=== PATIENT | female | born 1990 | race Caucasian/White ===

== ENCOUNTER → 2016-05-02 | Outpatient (CLI) | payer OTHER ==
[~2016-05-02] MED LIST: ACET50TA PO; COLA100C PO; IBUP60TA PO; MOM30SS PO; PRENTAB31 PO
--- NOTE | 2016-05-02 17:34 | REP ---
OB ULTRASOUND: Real-time sonographic evaluation of the gravid uterus is performed. There is a single living intrauterine gestation. The estimated gestational age is 22 weeks 6 with EDC 08/30/2016. Today's measurements indicate appropriate growth. BPD 54 mm = 22 weeks 3 days, at the 39th percentile. HC 211 mm = 23 weeks 1 day, at the 57th percentile. AC 190 mm = 23 weeks 5 days, at the 67th percentile. Femur length 42 mm = 23 weeks 3 days, at the 64th percentile. HC/AC ratio 1.11 within normal range. Estimated weight 202 grams at the 64th percentile. Cervix is closed and measures 3.8 cm in length. heart rate 144 beats per minute. SEEN/GROSSLY UNREMARKABLE Lateral ventricles There are bilateral choroid plexus cysts, on left measuring 9 mm in diameter and on the right and 16 x 8 mm. Posterior fossa Yes Upper lip Yes Four-chamber heart Yes LVOT Yes RVOT Yes Stomach Yes Cord insertion Yes Three vessel cord Yes Kidneys Yes Bladder Yes Spine No position: Breech Placenta: Anterior and grade 0 with no previa or abruption. Amniotic fluid: Within normal limits. There appears to be a venous ramos in the placenta 5.1 x 1.6 x 2.8 cm. Unreviewed
== END ==
LOC: M SMT 14:55
PROVIDERS: ATTEND Specialist
DX: Z34.82 Encounter for supervision of other normal pregnancy, second trimester (principal); Z3A.22 22 weeks gestation of pregnancy; O32.1XX0 Maternal care for breech presentation, not applicable or unspecified

== ENCOUNTER → 2016-06-12 | Outpatient (CLI) | payer OTHER ==
[~2016-06-12] MED LIST changes: -COLA100C PO; +COLA100C3 PO
--- NOTE | 2016-06-13 03:18 | REP ---
Clinical: Anatomical evaluation. Comparison: 05/02/2016 . Findings: Examination demonstrates a single live intrauterine in breech presentation. motion is identified by technologist. Placenta is noted anteriorly and grade one without evidence for placenta previa or abruption. Amniotic fluid volume is normal. Cervix measures 3.7 cm in length and appears closed. No evidence for nuchal cord. Gestational age by first ultrasound 28 weeks 3 days with ADRIAN 08/30/2016 . Gestational age by current measurements 29 weeks 3-day with ADRIAN 08/25/2016 . FHR equals 147 beats per minute. Amniotic fluid index equals 11.1 cm. Estimated weight 1430 grams ( 63rd percentile). Anatomical assessment demonstrates normal structures including cranium, cavum, cerebellum/posterior fossa, lungs, four-chamber heart, diaphragm, stomach, cord insertion/three-vessel cord, bladder, spine, and extremities. Impression: Single live intrauterine in cephalic presentation. Bilateral choroid plexus cysts again noted (7 mm right; 7 mm left). Mild renal pelviectasis (2.6 mm right; 3.1 mm left). Remainder of the anatomical assessment is complete and normal. Signed by Ruslan Devine MD 06/13/2016 03:10 A
== END ==
LOC: M SMT 10:42
PROVIDERS: ATTEND Obstetrics & Gynecology
DX: Z34.82 Encounter for supervision of other normal pregnancy, second trimester (principal); Z3A.28 28 weeks gestation of pregnancy

== ENCOUNTER → 2016-06-13 | Outpatient (CLI) | payer OTHER ==
[2016-06-13 13:28] LABS: BASO % 0.2 % (0.0-1.0); EOS # 0.1 K/mm3 (0.0-0.50); EOS % 0.7 % (0.0-3.0); LARGE UNSTAINED CELL # 0.1 K/mm3 (0.0-0.4); LYMPH # 1.6 K/mm3 (1.5-6.5); LYMPH % 18.7 % (24.0-44.0); MEAN CORPUSCULAR HEMOGLOBIN 27.2 pg (27.0-33.0); MEAN CORPUSCULAR VOLUME 84.8 fl (80.0-96.0); MONO # 0.4 K/mm3 (0.0-0.8); MONO % 4.2 % (0.0-5.0); NEUTROPHILS # 6.3 K/mm3 (1.8-7.7); NEUTROPHILS % 75.2 % (36.0-66.0); PLATELET COUNT, AUTOMATED 276 k/mm3 (150-450); RED CELL DISTRIBUTION WIDTH 12.9 % (11.5-14.5); WHITE BLOOD COUNT 8.4 K/mm3 (4.0-10.0)
[2016-06-13 13:58] LABS: HBsAg Prenatal NEGATIVE (NEGATIVE)
== END ==
LOC: M SMT 08:39
PROVIDERS: ATTEND Obstetrics & Gynecology
DX: Z34.82 Encounter for supervision of other normal pregnancy, second trimester (principal); Z3A.28 28 weeks gestation of pregnancy

== ENCOUNTER → 2016-06-30 | Outpatient (REF) | payer OTHER | LOC: M LAB REF 17:11 | PROVIDERS: ATTEND Advanced Practice Midwife | DX: Z34.83 Encounter for supervision of other normal pregnancy, third trimester (principal) ==

== ENCOUNTER → 2016-08-06 | Outpatient (REF) | payer OTHER | LOC: M LAB REF 17:32 | PROVIDERS: ATTEND Advanced Practice Midwife | DX: Z34.83 Encounter for supervision of other normal pregnancy, third trimester (principal) ==

== ENCOUNTER → 2016-08-12 | Outpatient (CLI) | payer OTHER ==
--- NOTE | 2016-08-13 06:03 | REP ---
Clinical: Growth evaluation. Comparison: 06/12/2016 . Findings: Examination demonstrates a single live intrauterine in cephalic presentation. motion is identified by technologist. Placenta is noted anteriorly and grade one without evidence for placenta previa or abruption. Amniotic fluid volume is normal. No evidence for nuchal cord. Gestational age by LMP 37 weeks 3 days with ADRIAN 08/30/2016 . Gestational age by current measurements 37 weeks 4 days with ADRIAN 08/29/2016 . FHR equals 141 beats per minute. BPD 8.9 cm 36 weeks 1 day HC 32.7 cm 37 weeks 1 day AC 33.5 cm 37 weeks 3 days FL 7.7 cm 39 weeks 2 days HC/AC ratio 0.98 Estimated weight 3265 grams ( 58th percentile). SRINIVASAN = 13.1 cm (7.4 - 24.2) Impression: 1. Single live advanced gestation in cephalic presentation demonstrating appropriate interval growth. 2. Estimated weight and amniotic fluid index are normal. Signed by Ruslan Devine MD 08/13/2016 05:54 A
== END ==
LOC: M SMT 15:03
PROVIDERS: ATTEND Advanced Practice Midwife
DX: O26.843 Uterine size-date discrepancy, third trimester (principal); Z3A.36 36 weeks gestation of pregnancy

== ENCOUNTER → 2016-08-19 | Outpatient (CLI) | payer OTHER | LOC: M LAB 08:18 | PROVIDERS: ATTEND Advanced Practice Midwife | DX: Z34.82 Encounter for supervision of other normal pregnancy, second trimester (principal) ==

== ENCOUNTER 2016-08-23 11:10 | Inpatient (IN) | payer OTHER ==
[~2016-08-23] VITALS: Ht 157.5 cm; Wt 75.0 kg
[2016-08-23] VITALS (18 sets, daily range): BP systolic 95–135; BP diastolic 51–91
[~2016-08-23 11:10] MED LIST changes: -COLA100C3 PO; +COLA100C5 PO
[2016-08-23] MEDS ORDERED: miSOPROStol 50 MCG 1/2 TAB (S0191) PO SCH (12:00)
[2016-08-23] MEDS ORDERED: LR 1,000 ML IV SCH (12:18)
[2016-08-23 12:53] LABS: MEAN CORPUSCULAR HEMOGLOBIN 24.7 pg (27.0-33.0); MEAN CORPUSCULAR VOLUME 77.1 fl (80.0-96.0); RED CELL DISTRIBUTION WIDTH 14.5 % (11.5-14.5); WHITE BLOOD COUNT 6.8 K/mm3 (4.0-10.0)
--- NOTE | 2016-08-23 13:52 | HPE ---
DATE OF ADMISSION: 08/23/2016 A 26-year-old (G) 2, para (P) 1 female at 39-0/7 weeks gestation by 22 week ultrasound, estimated date of confinement (EDC) 08/30/2016, presents for labor induction. She has diagnosis of gestational diabetes which was not confirmed until lat . COURSE: The patient initiated care at 22 weeks gestation on 04/28/2016. She did not have any previous care for the prior to that. She had an abnormal glucose tolerance test, however, she did not get the 3 hour tolerance test done until 38+ weeks gestation, quite possible her diabetes is poorly controlled. An ultrasound for growth showed a growth at the 58th percentile. OBSTETRICAL HISTORY: March 2015: 41 week vaginal delivery, 8 pound 11 ounce female . MEDICAL HISTORY: Noncontributory. SURGICAL HISTORY: None. ALLERGIES: LATEX. SOCIAL HISTORY: Father of the baby is involved. The patient denies cigarettes, alcohol or drug use. FAMILY HISTORY: Noncontributory. PHYSICAL EXAMINATION: 126/68, pulse 84. She is in no apparent distress. Head and neck exam is normal. Lungs: Clear. Heart: Regular rate and rhythm. Abdomen: Nontender and gravid. heart tones: Category 1. Contractions: Irregular. Sterile vaginal exam: 2 cm, 70% effaced, -2 station, vertex. Extremities: Nontender. LABORATORY: Blood type A positive, rubella immune, RPR nonreactive. Hemoglobin 9.6 grams per g/dL, GBS negative on 08/06/2016. ASSESSMENT: A 24-year-old, 2, para 1 female at 39-0/7 weeks gestation with diet controlled gestational diabetes presents for labor induction. The patient is admitted on 08/23/2016. Risks of induction were discussed.
[2016-08-23] MEDS ORDERED: OXYTOCIN DRIP 30 UNITS in APPROPRIATE DILUENT 1 EA IV SCH (17:15)
[2016-08-23] MEDS ORDERED: PROMETHAZINE INJ 25 MG/ML VIAL (J2550) IV ONE (19:15)
[2016-08-23] MEDS ORDERED: BUTORPHANOL 2 MG/ML INJ (J0595) IV ONE (19:15)
[2016-08-24] VITALS (27 sets, daily range): BP systolic 96–142; BP diastolic 53–73
[2016-08-24] MEDS ORDERED: FENTANYL 2MCG/ML ROPIVACAINE 0.2% IN 0.9% NACL 200ML IVBAG As Ordered ONE (01:51)
[2016-08-24] MEDS ORDERED: FENTANYL/ROPIVACAINE/NACL BAG 200 ML EPIDURAL SCH (02:45)
[2016-08-24] MEDS ORDERED: REFRIGERATOR IV KEYS XX PRN (02:45)
[2016-08-24] MEDS ORDERED: LACTATED RINGER'S 1000 ML IV PRN (02:45)
[2016-08-24] MEDS ORDERED: EPIDURAL/PCA KEYS XX PRN (02:45)
[2016-08-24] MEDS ORDERED: EPIDURAL COMMENT XX SCH (02:45)
[2016-08-24] MEDS ORDERED: diphenhydrAMINE INJ 50MG/ML VIAL (J1200) IV PRN (02:45)
[2016-08-24] MEDS ORDERED: NALOXONE INJ 0.4 MG/1 ML VIAL (J2310) IV PRN (02:45)
[2016-08-24] MEDS ORDERED: ePHEDrine SULFATE 25 MG/5 ML(5MG/ML) SYRINGE IV PRN (02:45)
[2016-08-24] MEDS ORDERED: ONDANSETRON 4MG/2ML VIAL (J2405) IV PRN ×2 (02:45→05:00)
[2016-08-24] MEDS ORDERED: MEASLES,MUMPS,RUBELLA VACCINE INJ (MMR-II) (90707) SC SCH (05:00)
[2016-08-24] MEDS ORDERED: OXYTOCIN DRIP 30 UNITS in APPROPRIATE DILUENT 1 EA IV ONE (05:00)
[2016-08-24] MEDS ORDERED: METHYLERGONOVINE MALEATE 0.2 MG TAB PO PRN (05:00)
[2016-08-24] MEDS ORDERED: DIBUCAINE 1% OINTMENT 30GM TOP PRN (05:00)
[2016-08-24] MEDS ORDERED: ACETAMINOPHEN 500 MG TAB PO PRN (05:00)
[2016-08-24] MEDS ORDERED: RHOGAM 300 MCG (1500 IU) INJ (J2790) IM SCH (05:00)
[2016-08-24] MEDS ORDERED: DOCUSATE SODIUM 100 MG CAP PO PRN (05:00)
[2016-08-24] MEDS: PRENATAL VITAMINS CHEWABLE TABLET PO SCH (07:36)
[2016-08-24] MEDS: IBUPROFEN 800 MG TAB PO PRN ×2 (09:38→21:04)
--- NOTE | 2016-08-24 22:23 | DN ---
DATE OF DELIVERY: 08/24/2016 PREDELIVERY DIAGNOSIS: 39 weeks gestational diabetes labor induction. POST DELIVERY DIAGNOSIS: Delivered. PROCEDURE: Spontaneous vaginal delivery. PROJECT ARCHIVIST: Karan Elizabeth M.D. ANESTHESIA: Epidural. ESTIMATED BLOOD LOSS: 300 mL. FINDINGS: 8 pound, 2 ounce female . scores 9 and 10. DELIVERY SUMMARY: After 20 minute second stage, the patient had spontaneous delivery of a 8 pound 2 ounce female scores 9 and 10 under epidural anesthesia. There is no nuchal cord. The shoulders delivered with ease. The cried spontaneously and was handed to the mother. The cord is doubly clamped and cut. The placenta delivered spontaneously and appeared to be intact. The patient received IV pitocin immediately after delivery of the placenta. A second degree laceration was repaired with 2-0 Chromic in the usual fashion. Sponge and needles counts are correct.
[2016-08-25 06:00] VITALS: BP 147/74
[2016-08-25] MEDS: PRENATAL VITAMINS CHEWABLE TABLET PO SCH (08:14)
[2016-08-25] MEDS: IBUPROFEN 800 MG TAB PO PRN (08:14)
[2016-08-25] MEDS ORDERED: IBUP-1114 PO (11:42)
== END 2016-08-25 13:00 | disposition home or self-care (01) | DRG 560 ==
LOC: M LDI 11:10 → M OBS 08-24 07:25
PROVIDERS: ADMIT Specialist; ATTEND Specialist
PROC: 3E0DXGC Introduction of Other Therapeutic Substance into Mouth and Pharynx, External Approach (ICD-10-PCS; 2016-08-23)
PROC: 10E0XZZ Delivery of Products of Conception, External Approach (ICD-10-PCS; principal; 2016-08-24)
PROC: 0KQM0ZZ Repair Perineum Muscle, Open Approach (ICD-10-PCS; 2016-08-24)
DX: O24.430 Gestational diabetes mellitus in the puerperium, diet controlled (principal); O70.1 Second degree perineal laceration during delivery; Z37.0 Single live birth; Z3A.39 39 weeks gestation of pregnancy; Z91.040 Latex allergy status

== ENCOUNTER → 2017-01-17 | Outpatient (REF) | payer OTHER ==
[~2017-01-17] MED LIST changes: +IBUP-1114 PO
== END ==
LOC: M LAB REF 15:38
PROVIDERS: ATTEND Physician Assistant Medical
DX: J02.0 Streptococcal pharyngitis (principal)

== ENCOUNTER 2017-09-06 21:50 | Emergency (ER) | payer OTHER, SELFPAY ==
[2017-09-07] MEDS: ONDANSETRON 4MG/2ML VIAL (J2405) IV (00:15)
[2017-09-07] MEDS: PANTOPRAZOLE 40MG INJ (PROTONIX) (C9113) IV (00:15)
[2017-09-07] MEDS: GI COCKTAIL 50ML BTL(HYOSCYAMINE/MAALOX/LIDOCAINE VISCOUS)(1:3:1) PO (00:15)
[2017-09-07 00:37] LABS: BASO % 0.2 % (0.0-1.0); EOS % 0.2 % (0.0-3.0); HEMATOCRIT 36.4 % (36.0-47.0); HEMOGLOBIN 11.7 g/dl (12.0-15.5); IMMATURE GRANULOCYTE % 0.1 % (0-3.0); LYMPH # 2.3 10^3/uL (1.5-6.5); LYMPH % 27.9 % (24.0-44.0); MEAN CORPUSCULAR HEMOGLOBIN 26.8 pg (27.0-33.0); MEAN CORPUSCULAR HGB CONC 32.1 g/dl (32.0-36.5); MEAN CORPUSCULAR VOLUME 83.3 fl (80.0-96.0); MONO # 0.6 10^3/uL (0.0-0.8); NEUTROPHILS # 5.4 10^3/uL (1.8-7.7); NEUTROPHILS % 64.6 % (36.0-66.0); PLATELET COUNT, AUTOMATED 273 10^3/uL (150-450); RED BLOOD COUNT 4.37 10^6/uL (4.00-5.40); RED CELL DISTRIBUTION WIDTH 13.4 % (11.5-14.5); WHITE BLOOD COUNT 8.4 10^3/uL (4.0-10.0)
[2017-09-07 00:58] LABS: ALBUMIN 4.1 GM/DL (3.2-5.2); ALBUMIN/GLOBULIN RATIO 1.14 (1.00-1.93); ALKALINE PHOSPHATASE 57 U/L (45-117); ALT/SGPT 17 U/L (12-78); ANION GAP 8 MEQ/L (8-16); AST/SGOT 14 U/L (7-37); BILIRUBIN,TOTAL 0.3 MG/DL (0.2-1.0); BLOOD UREA NITROGEN 15 MG/DL (7-18); CALCIUM LEVEL 8.6 MG/DL (8.5-10.1); CARBON DIOXIDE LEVEL 26 MEQ/L (21-32); CHLORIDE LEVEL 104 MEQ/L (98-107); CREATININE FOR GFR 0.78 MG/DL (0.55-1.30); GLOMERULAR FILTRATION RATE > 60.0 (>60); GLUCOSE, FASTING 99 MG/DL (70-100); LIPASE 94 U/L (73-393); POTASSIUM SERUM 3.8 MEQ/L (3.5-5.1); SODIUM LEVEL 138 MEQ/L (136-145); TOTAL PROTEIN 7.7 GM/DL (6.4-8.2)
[2017-09-07] MEDS: MAGNESIUM CITRATE 300 ML BTL PO (01:41)
[2017-09-07] MEDS: ONDANSETRON 4 MG ORAL DISINTEGRATING TAB (Q0162 PER 1MG) PO (01:41)
== END 2017-09-07 01:41 | disposition home or self-care (01) ==
LOC: M ED 21:50
DX: K29.70 Gastritis, unspecified, without bleeding (principal); K59.00 Constipation, unspecified; J45.909 Unspecified asthma, uncomplicated
CPT/HCPCS: C9113

== ENCOUNTER 2017-09-13 20:32 | Emergency (ER) | payer OTHER, SELFPAY ==
[2017-09-13] MEDS: GI COCKTAIL 50ML BTL(HYOSCYAMINE/MAALOX/LIDOCAINE VISCOUS)(1:3:1) PO (21:38)
[2017-09-13] MEDS: ONDANSETRON 4 MG ORAL DISINTEGRATING TAB (Q0162 PER 1MG) PO (21:43)
[2017-09-13] MEDS: BISACODYL 10 MG SUPP PR (22:27)
== END 2017-09-13 22:27 | disposition home or self-care (01) ==
LOC: M ED 20:32
DX: K59.00 Constipation, unspecified (principal); K29.70 Gastritis, unspecified, without bleeding; Z91.040 Latex allergy status
CPT/HCPCS: Q0162

== ENCOUNTER 2019-03-15 10:31 | Emergency (ER) | payer OTHER, SELFPAY ==
[~2019-03-15] VITALS: Ht 157.5 cm; Wt 65.9 kg
[~2019-03-15 10:31] MED LIST changes: -ACET50TA PO; +IBUP600T42 PO; -IBUP60TA PO; +MAPA500T2 PO; +MIRA3350 PO; +RANI15TA PO; +ZOFR4TAB14 PO
[2019-03-15] MEDS ORDERED: TYLENOL 2 TABS (10:38)
[2019-03-15] MEDS ORDERED: THERA FLU (10:38)
[2019-03-15 14:49] LABS: INFLUENZA A AMPLIFICATION NEGATIVE (NEGATIVE); INFLUENZA B AMPLIFICATION POSITIVE (NEGATIVE)
[2019-03-15] MEDS ORDERED: ACETAMINOPHEN 500 MG TAB PO ONE (15:15)
[2019-03-15 15:25] VITALS: BP 124/78
== END 2019-03-15 15:25 | disposition home or self-care (01) ==
LOC: M ED 10:31
DX: J06.9 Acute upper respiratory infection, unspecified (principal); B34.9 Viral infection, unspecified; J45.909 Unspecified asthma, uncomplicated

== ENCOUNTER → 2020-02-08 | Outpatient (CLI) | payer SELFPAY ==
[~2020-02-08] MED LIST changes: +THERA FLU; +TYLENOL 2 TABS
== END ==
LOC: M LABSMTC 11:31
PROVIDERS: ATTEND Pediatrics
DX: Z20.828 Contact with and (suspected) exposure to other viral communicable diseases (principal)

== ENCOUNTER → 2023-03-06 | Outpatient (CLI) | payer OTHER ==
[2023-03-06 15:39] LABS: BASO % 0.2 % (0.0-1.0); EOS % 0.3 % (0.0-3.0); HEMATOCRIT 40.5 % (36.0-47.0); HEMOGLOBIN 13.2 g/dl (12.0-15.5); LYMPH # 2.3 10^3/uL (1.5-5.0); LYMPH % 24.6 % (24.0-44.0); MEAN CORPUSCULAR HEMOGLOBIN 28.9 pg (27.0-33.0); MEAN CORPUSCULAR HGB CONC 32.6 g/dl (32.0-36.5); MEAN CORPUSCULAR VOLUME 88.8 fl (80.0-96.0); MONO # 0.7 10^3/uL (0.0-0.8); MONO % 7.4 % (2.0-8.0); NEUTROPHILS # 6.4 10^3/uL (1.5-8.5); NEUTROPHILS % 67.2 % (36.0-66.0); PLATELET COUNT, AUTOMATED 313 10^3/uL (150-450); RED BLOOD COUNT 4.56 10^6/uL (4.00-5.40); WHITE BLOOD COUNT 9.5 10^3/uL (4.0-10.0)
[2023-03-06 15:58] LABS: ALBUMIN 4.2 G/DL (3.2-5.2); ALKALINE PHOSPHATASE 59 U/L (46-116); ALT/SGPT 15 U/L (7.0-40); AST/SGOT 10 U/L (<34); BILIRUBIN,TOTAL 0.4 MG/DL (0.3-1.2); BLOOD UREA NITROGEN 15 MG/DL (9-23); CARBON DIOXIDE LEVEL 28 MMOL/L (20-31); CHLORIDE LEVEL 107 MMOL/L (98-107); CHOLESTEROL LEVEL 190 MG/DL (<200); CHOLESTEROL RISK RATIO 2.52 (<5); CREATININE FOR GFR 0.81 MG/DL (0.55-1.30); GLOMERULAR FILTRATION RATE > 60.0 (>60); GLUCOSE, FASTING 94 MG/DL (60-100); HDL CHOLESTEROL 75.2 MG/DL (>40); NON-HDL-C 114.8 MG/DL; POTASSIUM SERUM 4.1 MMOL/L (3.5-5.1); SODIUM LEVEL 141 MMOL/L (136-145); TOTAL PROTEIN 7.3 G/DL (5.7-8.2); TRIGLYCERIDES LEVEL 59 MG/DL (<150)
[2023-03-06 16:01] LABS: TOTAL 25(OH) VITAMIN D 13.1 NG/ML (20.0-100.0)
[2023-03-06 16:02] LABS: FREE T4 1.29 NG/DL (0.89-1.76); THYROID STIMULATING HORMONE 2.147 uIU/ML (0.55-4.78)
== END ==
LOC: M PLALAB 14:31
PROVIDERS: ATTEND Nurse Practitioner Family
DX: R53.83 Other fatigue (principal); Z13.220 Encounter for screening for lipoid disorders; E55.9 Vitamin D deficiency, unspecified

== ENCOUNTER → 2023-05-27 | Outpatient (REF) | payer OTHER | LOC: M SFHCWAGY 17:36 | PROVIDERS: ATTEND Nurse Practitioner Family | DX: Z12.4 Encounter for screening for malignant neoplasm of cervix (principal) | CPT/HCPCS: 87624; G0123 ==

== ENCOUNTER → 2023-07-29 | Outpatient (REF) | payer OTHER | LOC: M SFHCWAGY 10:58 | PROVIDERS: ATTEND Nurse Practitioner Family | DX: Z12.4 Encounter for screening for malignant neoplasm of cervix (principal); R87.615 Unsatisfactory cytologic smear of cervix ==

== ENCOUNTER → 2024-03-08 | Outpatient (CLI) | payer OTHER ==
[2024-03-08 14:03] LABS: BASO % 0.5 % (0.0-1.0); EOS % 0.5 % (0.0-3.0); HEMATOCRIT 36.9 % (36.0-47.0); HEMOGLOBIN 12.1 g/dl (12.0-15.5); LYMPH # 1.9 10^3/uL (1.5-5.0); MEAN CORPUSCULAR HEMOGLOBIN 28.9 pg (27.0-33.0); MEAN CORPUSCULAR HGB CONC 32.8 g/dl (32.0-36.5); MEAN CORPUSCULAR VOLUME 88.3 fl (80.0-96.0); MONO # 0.6 10^3/uL (0.0-0.8); MONO % 8.3 % (2.0-8.0); NEUTROPHILS # 4.8 10^3/uL (1.5-8.5); NEUTROPHILS % 65.4 % (36.0-66.0); PLATELET COUNT, AUTOMATED 343 10^3/uL (150-450); RED BLOOD COUNT 4.18 10^6/uL (4.00-5.40); WHITE BLOOD COUNT 7.4 10^3/uL (4.0-10.0)
[2024-03-08 14:29] LABS: ALBUMIN 3.9 G/DL (3.2-5.2); ALKALINE PHOSPHATASE 58 U/L (35-104); ALT/SGPT 17 U/L (7.0-40); AST/SGOT 13 U/L (<34); BILIRUBIN,TOTAL 0.4 MG/DL (0.3-1.2); BLOOD UREA NITROGEN 15 MG/DL (9-23); CALCIUM LEVEL 9.6 MG/DL (8.5-10.1); CARBON DIOXIDE LEVEL 25 MMOL/L (20-31); CHLORIDE LEVEL 104 MMOL/L (98-107); CHOLESTEROL LEVEL 168 MG/DL (<200); CHOLESTEROL RISK RATIO 2.55 (<5); CREATININE FOR GFR 0.66 MG/DL (0.55-1.30); GLOMERULAR FILTRATION RATE > 60.0 (>60); GLUCOSE, FASTING 88 MG/DL (60-100); HDL CHOLESTEROL 65.8 MG/DL (>40); LDL CHOLESTEROL 88.8 MG/DL (<100); NON-HDL-C 102.2 MG/DL; POTASSIUM SERUM 4.4 MMOL/L (3.5-5.1); SODIUM LEVEL 137 MMOL/L (136-145); TOTAL PROTEIN 7.5 G/DL (5.7-8.2); TRIGLYCERIDES LEVEL 67 MG/DL (<150)
== END ==
LOC: M PLALAB 09:52
PROVIDERS: ATTEND Nurse Practitioner Family
DX: F41.9 Anxiety disorder, unspecified (principal); E55.9 Vitamin D deficiency, unspecified; Z13.220 Encounter for screening for lipoid disorders

== ENCOUNTER → 2024-03-08 | Outpatient (CLI) | payer OTHER ==
[2024-03-08 14:05] LABS: BASO % 0.4 % (0.0-1.0); EOS # 0.1 10^3/uL (0.0-0.5); EOS % 0.6 % (0.0-3.0); HEMATOCRIT 37.3 % (36.0-47.0); HEMOGLOBIN 12.1 g/dl (12.0-15.5); LYMPH % 25.3 % (24.0-44.0); MEAN CORPUSCULAR HEMOGLOBIN 29.1 pg (27.0-33.0); MEAN CORPUSCULAR HGB CONC 32.4 g/dl (32.0-36.5); MEAN CORPUSCULAR VOLUME 89.7 fl (80.0-96.0); MONO # 0.7 10^3/uL (0.0-0.8); NEUTROPHILS # 5.1 10^3/uL (1.5-8.5); NEUTROPHILS % 64.3 % (36.0-66.0); PLATELET COUNT, AUTOMATED 342 10^3/uL (150-450); RED BLOOD COUNT 4.16 10^6/uL (4.00-5.40); WHITE BLOOD COUNT 7.9 10^3/uL (4.0-10.0)
[2024-03-08 14:30] LABS: ALBUMIN 3.9 G/DL (3.2-5.2); ALKALINE PHOSPHATASE 59 U/L (35-104); ALT/SGPT 17 U/L (7.0-40); AST/SGOT 14 U/L (<34); BILIRUBIN,TOTAL 0.4 MG/DL (0.3-1.2); BLOOD UREA NITROGEN 15 MG/DL (9-23); CALCIUM LEVEL 9.8 MG/DL (8.5-10.1); CARBON DIOXIDE LEVEL 25 MMOL/L (20-31); CHLORIDE LEVEL 103 MMOL/L (98-107); CREATININE FOR GFR 0.66 MG/DL (0.55-1.30); GLOMERULAR FILTRATION RATE > 60.0 (>60); GLUCOSE, FASTING 88 MG/DL (60-100); POTASSIUM SERUM 4.6 MMOL/L (3.5-5.1); RHEUMATOID FACTOR QUANT 6.8 IU/ML (<14); SODIUM LEVEL 138 MMOL/L (136-145); THYROID PEROXIDASE ANTIBODY 36 U/ML (<60.0); THYROID STIMULATING HORMONE 1.091 uIU/ML (0.55-4.78); THYROXINE (T4) 10.3 UG/DL (4.5-10.9); TOTAL PROTEIN 7.4 G/DL (5.7-8.2); TOTAL T3 148.4 NG/DL (60.0-181.0)
[2024-03-08 14:34] LABS: ERYTHROCYTE SEDIMENTATION RATE 33 mm/hr (0-20)
== END ==
LOC: M PLALAB 09:56
PROVIDERS: ATTEND Allergy & Immunology Allergy
DX: L50.3 Dermatographic urticaria (principal)

== ENCOUNTER → 2024-06-02 | Outpatient (CLI) | payer OTHER ==
[2024-06-02 16:05] LABS: HEMOGLOBIN A1c 4.8 % (4.0-6.0)
== END ==
LOC: M PLALAB 13:39
PROVIDERS: ATTEND Nurse Practitioner Family
DX: R63.5 Abnormal weight gain (principal)